=== PATIENT | male | born 1945 | race Native Hawaiian/Other Pacific Islander ===

== ENCOUNTER 2021-04-01 08:16 | Outpatient (CLI) | payer OTHER ==
[~2021-04-01] VITALS: Ht 180.3 cm; Wt 76.2 kg
== END 2021-04-01 19:10 | disposition home or self-care (01) ==
LOC: INF 08:16
PROVIDERS: ATTEND Internal Medicine
DX: U07.1 COVID-19 (principal); Z23 Encounter for immunization
CPT/HCPCS: 96365; Q0239; Q0245